=== PATIENT | female | born 1985 | race Two or more races ===

== ENCOUNTER 2020-09-14 23:19 | Emergency (ER) | payer MEDICAID ==
[~2020-09-14] VITALS: Ht 152.4 cm; Wt 68.0 kg
--- NOTE | 2020-09-14 23:31 | NUR ---
PT AAOX4. AMBULATORY WITH STEADY GAIT. BIBSELF C/O HEADACHE AND LOWER BACK PAIN X8 DAYS. EMT AT BEDSIDE FOR TRANSLATION, PT WOLOF SPEAKING. NO ACUTE DISTRESS NOTED. MD AT BEDSIDE WELL FOR EVAL.
[2020-09-15] MEDS ORDERED: KETOROLAC TROMETHAMINE INJ 60 MG/2 ML VIAL IM ONE ×2 (00:48→01:00)
[2020-09-15] MEDS ORDERED: LORAZEPAM 1 MG TABLET ONE (00:49)
[2020-09-15] MEDS ORDERED: LORAZEPAM 1 MG TABLET PO ONE (01:00)
--- NOTE | 2020-09-15 01:21 | NUR ---
PT STATED SHE FEELS BETTER. EMT AT BEDSIDE FOR TRANSLATION.
--- NOTE | 2020-09-15 01:37 | NUR ---
Patient discharged to home in stable condition. Written and verbal after care instructions given. Patient verbalizes understanding of instruction. Pt ambulated out of [facility]. vss.
[2020-09-15 01:41] VITALS: BP 121/73
== END 2020-09-15 01:41 | disposition home or self-care (01) ==
LOC: ER 23:22
DX: R51.9 Headache, unspecified (principal); R42 Dizziness and giddiness; M54.5 Low back pain; Z90.89 Acquired absence of other organs
CPT/HCPCS: 84703; 96372; 99283; J1885